=== PATIENT | female | born 1970 | race Caucasian/White ===

== ENCOUNTER 2024-11-09 14:17 | Outpatient (CLI) | payer MEDICARE | END 2024-11-09 14:18 | disposition home or self-care (01) | LOC: CSHMAMMO 14:17 | PROVIDERS: ATTEND Registered Nurse | DX: Z12.31 Encounter for screening mammogram for malignant neoplasm of breast (principal); Z80.3 Family history of malignant neoplasm of breast; Z85.828 Personal history of other malignant neoplasm of skin; Z98.890 Other specified postprocedural states | CPT/HCPCS: 77063; 77067 ==

== ENCOUNTER 2025-01-03 13:55 | Outpatient (CLI) | payer MEDICARE | END 2025-01-03 13:56 | disposition home or self-care (01) | LOC: CSHULT 13:55 | PROVIDERS: ATTEND Specialist | DX: J38.2 Nodules of vocal cords (principal) | CPT/HCPCS: 76536 ==